=== PATIENT | female | born 1960 | race Caucasian/White ===

== ENCOUNTER 2017-06-16 22:42 | Emergency (ER) | payer MEDICARE ==
[2011-06-12 12:17] VITALS: BMI 36.6
[2017-06-20 06:59] VITALS: BMI 29.3
== END 2017-06-17 00:10 | disposition home or self-care (01) ==
LOC: D.ER 22:42
DX: S52.502A Unspecified fracture of the lower end of left radius, initial encounter for closed fracture (principal); W19.XXXA Unspecified fall, initial encounter; Y93.89 Activity, other specified; Y92.019 Unspecified place in single-family (private) house as the place of occurrence of the external cause; Z86.73 Personal history of transient ischemic attack (TIA), and cerebral infarction without residual deficits; I10 Essential (primary) hypertension

== ENCOUNTER 2017-06-20 06:15 | Day surgery (SDC) | payer MEDICARE ==
[2017-06-19 12:17] LABS: HEMATOCRIT 41.9 % (36.0-48.0); HEMOGLOBIN 14.1 g/dL (12-16); MCH 31.5 pg (26.0-34.0); MCHC 33.7 g/dL (31.0-37.0); MCV 93.5 fL (80.0-100.0); MEAN PLATELET VOLUME 11.2 fL (7.4-10.4); RBC 4.48 10x6/uL (4.00-5.40); RDW 13.4 % (11.5-14.5); WBC 7.4 10x3/uL (4.8-10.8)
[~2017-06-20] VITALS: Ht 157.5 cm; Wt 72.6 kg
--- NOTE | ~2017-06-20 | OP ---
PATIENT NAME: GAGAN FIGUEROA MEDICAL RECORD: [id number] LOCATION:D.OPS ADMISSION DATE: SURGEON: KEAGAN STANFORD MD DATE OF OPERATION: 06/20/2017 PREOPERATIVE DIAGNOSES: Displaced distal radius fracture, acute carpal tunnel syndrome. POSTOPERATIVE DIAGNOSES: Displaced distal radius fracture, acute carpal tunnel syndrome. PROCEDURE: Open reduction internal fixation of displaced distal radius fracture, carpal tunnel release. SURGEON: Keagan Stanford MD ANESTHESIA: General. INTRAOPERATIVE COMPLICATIONS: None. SUMMARY OF PATHOLOGIC FINDINGS: The patient had loss of volar tilt as seen on the x-rays from the Emergency Department. This was reduced and plated for anatomic muslim. OPERATIVE SUMMARY IN DETAIL: After obtaining the appropriate preoperative orthopedic surgery consent as well as anesthetic consultation, evaluation, and clearance, the patient was brought to the operating room and placed on the operating table in supine position. After general laryngeal mask was administered, tourniquet placed on the proximal aspect of the left upper extremity. Left upper extremity was prepped and draped in routine sterile fashion. The arm was elevated and exsanguinated, tourniquet inflated to 250 mmHg. Volar incision was used in keeping with Arnie's volar approach. Volar Arnie's approach was used down into the palmar crease for carpal tunnel release. The flexor carpal radialis was identified and used as a landmark. Gentle dissection was carried down into the carpal canal, carpal tunnel was released in its entirety, median nerve was in excellent condition. Dissection was then carried down to the fracture with release of the periosteum musculature. The plate was then affixed with fluoroscopic guidance and with the wrist held in a reduced position, the distal most screws were put in compression. This was then verified on AP and lateral planes. The rest of the screws were then put in locking to hold the construct. Final radiographs for AP and lateral were taken and submitted to radiology for radiologist review. The wound was copiously irrigated and closed with 2-0 Vicryl followed by 4-0 Prolene in a running fashion. Sterile dressings were applied. The patient was awakened and taken to recovery room in stable condition. All final needle and sponge counts were correct. TRANSINT:[id number] Voice Confirmation ID: [id number] DOCUMENT ID: [id number] OPERATIVE REPORT [id number] GAGAN FIGUEROA ABDOULAYE SWENSON, KEAGAN LEBRON at 1340 CC: [id number] DICTATION DATE: 06/20/17 1036 WASTE SPECIALIST: 06/20/17 [id number] [place] [address]
[2017-06-20 06:59] VITALS: Ht 157.5 cm; Wt 72.6 kg
[2017-06-20] MEDS ORDERED: HYDROCODONE-APA1 TAB PO (10:33)
== END 2017-06-20 14:16 | disposition home or self-care (01) ==
LOC: D.OPS 06:15 → D.PAN 09:15 → D.OPS 11:00 → D.PAN 11:00 → D.OPS 14:16
PROVIDERS: Anesthesiology
DX: S52.502A Unspecified fracture of the lower end of left radius, initial encounter for closed fracture (principal); Z95.0 Presence of cardiac pacemaker; Z01.812 Encounter for preprocedural laboratory examination; G56.02 Carpal tunnel syndrome, left upper limb

== ENCOUNTER 2017-06-25 10:40 | Emergency (ER) | payer MEDICARE ==
[2017-06-20 06:59] VITALS: BMI 29.3
[~2017-06-25 10:40] MED LIST: HYDROCODONE-APA1 TAB PO
== END 2017-06-25 12:24 | disposition home or self-care (01) ==
LOC: D.ER 10:40
DX: M25.532 Pain in left wrist (principal); Z98.890 Other specified postprocedural states; W19.XXXA Unspecified fall, initial encounter; Y93.89 Activity, other specified; Y92.019 Unspecified place in single-family (private) house as the place of occurrence of the external cause; Z86.73 Personal history of transient ischemic attack (TIA), and cerebral infarction without residual deficits; Z95.0 Presence of cardiac pacemaker; Z79.01 Long term (current) use of anticoagulants; I27.20 Pulmonary hypertension, unspecified